=== PATIENT | male | born 1975 | race Caucasian/White ===

== ENCOUNTER → 2020-04-21 11:27 | Outpatient (CLI) | payer OTHER, SELFPAY | PROVIDERS: PCP Internal Medicine; Referring Provider Clinical Nurse Specialist; Visit Provider Clinical Nurse Specialist | DX: Z20.828 Contact with and (suspected) exposure to other viral communicable diseases (principal) | CPT/HCPCS: 87635; 94799; U0003 ==

== ENCOUNTER 2021-04-21 07:13 | Emergency (ER) | payer OTHER, SELFPAY ==
[2021-04-21 07:14] VITALS: BP 117/88; PULSE 101; RESP 16; TEMP 36.7; O2SAT 96; BMI 30.3
--- NOTE | 2021-04-21 07:50 | EKG12_ITS ---
Test Reason : Blood Pressure : / mmHG Vent. Rate : 096 BPM Atrial Rate : 096 BPM P-R Int : 146 ms QRS Dur : 092 ms QT Int : 350 ms P-R-T Axes : 042 031 -02 degrees QTc Int : 442 ms Normal sinus rhythm Low voltage QRS (Limb Leads) Nonspecific T wave abnormality Confirmed by JACQUELIN SAHNI, RAMAN ([id number]), assistant editor ROMINA WALTER ([id number]) on 04/24/2021 9:10:37 AM Referred By: BG Confirmed By:RAMAN ROPER MD
--- NOTE | 2021-04-21 07:50 | RAD_ITS ---
EXAM DESCRIPTION: PORTABLE AP CHEST CLINICAL HISTORY: 45 years Male, chest pain chest pain COMPARISON: None FINDINGS: The thorax is intact. The heart and mediastinum appear to be within normal limits. The lungs appear to be well areated without evidence of pneumonic consolidation or pleural effusion. Curvilinear subsegmental atelectasis is noted in both lung bases RAD/Chest 1 View (Portable) IMPRESSION: Subsegmental atelectasis is noted in both lung bases, in this otherwise normal chest. Electronically Signed: Paxton Cruz DO at 9:07 EDT Tel , Service support ,
--- NOTE | 2021-04-21 07:52 | EDS_ITS ---
HPI History of Present Illness Chief Complaint: Palpitations Informant: patient Narrative Narrative: It takes some time to get the details of the history from the patient. He primarily presented with concerns for cardiac problems or elevated troponin. About 1 month ago he was in [place]. He had symptoms of palpitations chest pressure and dyspnea. He went to the emergency department. He had rising troponins. He evidently had a heart catheterization that showed clean coronary arteries but an ejection fraction about 45% and a slightly enlarged left ventricle. I do not have access to these results. He was placed on multiple meds. I believe he is on aspirin, Plavix, metoprolol. He is trying to access his medical records on his phone but is having difficulties. Now he presents with waxing and waning symptoms for the last two or 3 days. He gets muscle aches, fevers and chills, no dyspnea or chest pain. He gets some palpitations or feels like his heart is going faster than normal. He has had mild nausea but no vomiting. He is also had a couple cases of slightly soft stool without blood. He states he had Covid back in July but does not have the vaccinations. Nothing specifically makes his symptoms better or worse. They do not go away but they do wax and wane at times. [facility] Medical History (Updated 04/21/21 @ 09:[address] Christiano Samayoa MD) Arthritis Myocardial infarct Home Medications aspirin 81 mg PO DAILY 04/21/21 [History Last Taken Unknown] atorvastatin 40 mg PO QHS 04/21/21 [History Last Taken Unknown] carvedilol 6.25 mg PO BID 04/21/21 [History Last Taken Unknown] clopidogrel 75 mg PO DAILY 04/21/21 [History Last Taken Unknown] losartan 25 mg PO DAILY 04/21/21 [History Last Taken Unknown] meloxicam 15 mg PO DAILY PRN 04/21/21 [History Last Taken Unknown] Allergy/AdvReac Type Severity Reaction Status Date / Time No Known Allergies Allergy Verified 04/21/21 07:13 Social History Smoking Status: Never smoker [facility] ED Constitutional Constitutional ED: Reports chills, fever(s) and subjective; Denies weight loss Eyes Eyes: Denies blurry vision or change in vision ENT ENT ED: Reports rhinorrhea and sore throat; Denies ear pain Cardiovascular Cardiovascular: Reports palpitations; Denies chest pain Respiratory/Chest Respiratory/Chest: Reports cough; Denies dyspnea or sputum Gastrointestinal Gastrointestinal: Reports diarrhea and nausea; Denies vomiting Genitourinary Genitourinary ED: Denies dysuria or hematuria Musculoskeletal Musculoskeletal: Reports myalgias; Denies arthralgias, back pain or neck pain Integumentary Denies rash Neurologic Neurologic: Denies headache(s), paresthesias or weakness Psychiatric Psychiatric: Denies anxiety or depression Endocrine Endocrinology: Denies polydipsia or polyuria Allergic/Immunologic Allergic/Immunologic ED: Denies urticaria EXAM Physical Exam Const Vital Signs: 04/21/21 07:14 04/21/21 08:10 04/21/21 08:14 Temperature 98.0 F Temperature Source Temporal Pulse Rate 101 H 98 Respiratory Rate 16 15 Respiratory Effort Normal Non-Labored Blood Pressure 117/88 H 116/60 Blood Pressure Mean 97 78 Pulse Ox 96 96 95 Oxygen Delivery Method Room Air Room Air Room Air Positive well nourished and well developed General Appearance ED: well developed and NAD HEENT Reports moist mucous membranes Negative for trauma Eyes PERRL and EOMs intact bilaterally General Eye ED: Negative for pale conjunctiva Neck no lymphadenopathy and no JVD Chest Wall inspection of chest normal Resp normal respiratory effort and clear to auscultation bilaterally Resp Narrative: No pleuritic pain whatsoever. Effort and Inspection: Negative for pain with movement Auscultation: Negative for rales, rhonchi or wheezes Cardio regular rate and regular rhythm GI normal to inspection, nondistended, normoactive bowel sounds, non-tender and non-distended Palpation: soft Back/Spine no CVA tenderness Extremity normal to inspection General Extremety ED: Negative for edema or tenderness General Extremity: Negative for edema Neuro oriented x3 Sensorium / Orientation: alert Psych mental status grossly normal Skin no rashes or lesions noted MDM MDM MDM Narrative Medical decision making narrative: Patient's chest x-ray shows some mild atelectasis. CBC is normal. Electrolytes are essentially normal other than mild elevation of glucose. TSH and troponin are normal despite 2 days of symptoms. I talk with the patient more. He states that after he had Covid in the June range. He has had off-and-on feelings like this. He will get sick and get fevers and a little bit of cough and mild diarrhea and then he will get better again. This has been going back and forth. 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 I think he is okay going home. He is comfortable and would prefer to do that. 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 We did discuss reasons to bring him back. I do not think he needs any alteration of therapy. Lab Data Attestation: I reviewed the patient's lab results. Labs: Laboratory Results - last 24 hr 04/21/21 04/21/21 08:15 08:15 WBC 7.1 RBC 4.77 Hgb 14.1 Hct 42.5 MCV 89.1 MCH 29.6 MCHC 33.2 RDW Std Deviation 43.5 RDW Coeff of Camille 13.2 Plt Count 258 MPV 9.7 Immature Gran % (Auto) 0.400 Neut % (Auto) 74.4 H Lymph % (Auto) 12.9 L [place] % (Auto) 11.5 H Eos % (Auto) 0.4 Baso % (Auto) 0.4 Absolute Neuts (auto) 5.3 Absolute Lymphs (auto) 0.92 Nucleated RBC % 0 Sodium 137 Potassium 3.7 Chloride 103 Carbon Dioxide 27.0 Anion Gap 7 BUN 12 Creatinine 1.24 Estim Creat Clear Calc 88.39 Est GFR (MDRD) Af Amer 81 Est GFR (MDRD) Non-Af 67 BUN/Creatinine Ratio 9.7 L Glucose 137 H Calcium 9.1 Troponin I High Sens 6.5 TSH 0.62 Radiography Diagnostic Testing: Radiology Impression Chest X-Ray 04/21/21 07:50 IMPRESSION: Subsegmental atelectasis is noted in both lung bases, in this otherwise normal chest. Electronically Signed: Paxton Cruz DO at 9:07 EDT Tel , Service support , EKG Initial EKG: Comments: EKG done for palpitations read by me shows sinus rhythm with borderline tachycardic rate at 96. No ectopy. No acute ST elevation or depression consistent with infarct or ischemia. IN interval, QRS duration and QTC are normal. Discharge Plan Triage Chief Complaint: Palpitations ED Provider: Christiano Samayoa Dx/Rx/DC Orders Clinical Impression: Heart palpitations, Diarrhea, Subjective fever Instructions: ED Palpitations Prescriptions: No Action atorvastatin 40 mg tablet 40 mg PO QHS RF: 0 carvedilol 6.25 mg tablet 6.25 mg PO BID RF: 0 meloxicam 15 mg tablet 15 mg PO DAILY PRN (Reason: ARTHRITIS) RF: 0 clopidogrel 75 mg tablet 75 mg PO DAILY RF: 0 aspirin 81 mg tablet,delayed release (DR/EC) 81 mg PO DAILY RF: 0 losartan 25 mg tablet 25 mg PO DAILY RF: 0 Stand Alone Forms: ED Work / School Excuse Primary Care Provider: Babs Blanchard Referrals: Babs Blanchard MD [Primary Care Provider] - 3-5 Days if not improving Disposition Disposition: Home, Self Care
[2021-04-21 08:10] VITALS: O2SAT 96
[2021-04-21 08:14] VITALS: BP 116/60; PULSE 98; RESP 15; O2SAT 95
[2021-04-21 08:30] LABS: Absolute Lymphocyte Count 0.92 X10^3/uL (0.83-4.51); Absolute Neutrophil Count 5.3 X10^3/uL (2.0-7.7); Basophil# 0.03 X10^3/uL; Basophil% 0.4 % (0-1); Eosinophil# 0.03 X10^3/uL; Eosinophils% 0.4 % (0-5); Hematocrit 42.5 % (40-54); Hemoglobin 14.1 g/dL (13.0-16.5); Lymphocyte # 0.92 X10^3/ul (0.83-4.51); Lymphocyte % 12.9 % (19-41); Mean Corp Hgb Conc 33.2 g/dL (32-36); Mean Corpuscular Hgb 29.6 pg (27.0-32.0); Mean Corpuscular Volume 89.1 fL (80-94); Mean Platelet Vol. 9.7 fl (6.2-12.0); Monocyte# 0.82 X10^3/uL; Monocyte% 11.5 % (0-10); NRBC Flagged by Analyzer 0 % (0-5); Neutrophil # 5.29 X10^3/uL (2.7-7.7); Neutrophil % 74.4 % (47-70); Platelet Count 258 K/mm3 (150-450); RBC Distribution Width CV 13.2 % (11.6-14.6); RBC Distribution Width SD 43.5 fl (35.1-43.9); Red Blood Count 4.77 M/mm3 (4.6-6.2); White Blood Count 7.1 K/mm3 (4.4-11.0)
[2021-04-21 08:54] LABS: Anion Gap 7 (5-15); BUN 12 mg/dL (7-18); BUN/Creat Ratio 9.7 RATIO (10-20); Calcium,Total 9.1 mg/dL (8.5-10.1); Chloride 103 mmol/L (98-107); Creatinine, Serum 1.24 mg/dL (0.70-1.30); EST Glomerular Filtration Rate 67 mL/min (>60); Est Glom Filt Rate - Afr Amer 81 mL/min (>60); Estimated Creatinine Clearance 88.39 ml/min; Glucose 137 mg/dL (74-106); Potassium 3.7 mmol/L (3.5-5.1); Sodium Level 137 mmol/L (136-145); Thyroid Stim Hormone (TSH) 0.62 uIU/mL (0.358-3.74); Troponin-I HS 6.5 pg/mL (3.0-78.5)
[2021-04-21 09:58] VITALS: BP 112/70; PULSE 87; RESP 22; TEMP 37.7; O2SAT 95
== END 2021-04-21 10:00 | disposition home or self-care (01) ==
PROVIDERS: Emergency Provider Emergency Medicine; PCP Internal Medicine
DX: R00.2 Palpitations (principal); R19.7 Diarrhea, unspecified; R50.9 Fever, unspecified; R05 Cough; Z20.822 Contact with and (suspected) exposure to COVID-19; R73.9 Hyperglycemia, unspecified; M19.90 Unspecified osteoarthritis, unspecified site; Z79.02 Long term (current) use of antithrombotics/antiplatelets; Z79.82 Long term (current) use of aspirin; Z79.1 Long term (current) use of non-steroidal anti-inflammatories (NSAID); Z79.899 Other long term (current) drug therapy; I25.2 Old myocardial infarction; Z86.16 Personal history of COVID-19
CPT/HCPCS: 71045; 80048; 84443; 84484; 85025; 87426; 93005; 99284; A4216